=== PATIENT | male | born 1980 | race Caucasian/White ===

== ENCOUNTER 2018-09-06 23:02 | Emergency (ER) | payer MEDICAID ==
[~2018-09-06] VITALS: Ht 165.1 cm; Wt 111.1 kg
[2018-09-06] MEDS ORDERED: PERCOCET 5-3251 EACH ORAL (23:13)
[2018-09-06 23:20] VITALS: BP 122/84
--- NOTE | 2018-09-06 23:20 | NUR ---
ER Nurse Note: Pt from home c/o generalized pain, 10/10 pain. 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 Pt stated he is in need of a gastric bypass and experiencing shortness of breath. Pt was laying in bed; smiling and calm. Pt VSS, no signs of distress, O2 96% room air; cap refill less than three sec. Full range of motion in all extremities with no difficulity. Ambulatory, no skin breakdown. ERMD at pt side; will continue to monitor.
[2018-09-06 23:30] VITALS: BP 122/84
--- NOTE | 2018-09-06 23:30 | NUR ---
ER Nurse Note: Pt seen, treated, medically cleared for discharge by ERMD. Pt stated he would not leave until he saw the doctor and get medication. Pt refused to leave; escorted by security. Left with all belongings.
--- NOTE | 2018-09-06 23:35 | Emergency Room Report ---
History of Present Illness General Chief Complaint: Pain Source: Patient Present Illness HPI Patient presents with reports of back pain and sleep apnea Reports that he requires a gastric bypass Patient has been having low back pain for several years Denies any acute fall or trauma denies any chest pain or shortness of breath Denies any saddle paresthesia denies any loss of control of bowel or urination Patient reports that he is allergic to Tylenol or Motrin therefore requires ' the strong staff' When asked what he meant by that patient replies that he requires'Dilaudid or morphine' Allergies: Coded Allergies: ACETAMINOPHEN (Verified Allergy, Unknown, 09/06/18) IBUPROFEN (Verified Allergy, Unknown, 09/06/18) NAPROXEN (Verified Allergy, Unknown, 09/06/18) Patient History Past Medical History: see triage record Reviewed Nursing Documentation: PMH: Agreed; PSxH: Agreed Nursing Documentation-PMH Past Medical History: No Stated History Review of Systems All Other Systems: negative except mentioned in HPI Physical Exam Vital Signs Date Time Temp Pulse Resp B/P (MAP) Pulse Ox O2 Delivery O2 Flow Rate FiO2 09/06/18 23:05 98.2 90 12 122/84 96 Room Air Sp02 EP Interpretation: reviewed, normal General Appearance: well appearing, no apparent distress Head: normocephalic, atraumatic Eyes: bilateral eye PERRL, bilateral eye EOMI ENT: normal pharynx Neck: supple Respiratory: lungs clear, no retraction, no accessory muscle use Cardiovascular #1: regular rate, rhythm Gastrointestinal: non tender, soft Musculoskeletal: normal inspection - Patient ambulating without any deficits Neurologic: alert, oriented x3, responsive Psychiatric: mood/affect normal Skin: normal color Lymphatic: no adenopathy Medical Decision Making Diagnostic Impression: Primary Impression: back pain ER Course Patient has appropriate medical screening evaluation performed Remains hemodynamic stable does not show any acute emergent pathology I'm concerned about the patient's request for Dilaudid or morphine Also concerned about his allergies to Tylenol and Motrin and naproxen I feel patient will benefit from appropriate outpatient evaluation and further care as needed At the time of disposition patient ambulated to the physician dictation area, and bleeding without any deficit, reports that I have taken an oath Patient's otherwise stable for close outpatient follow-up Last Vital Signs Date Time Temp Pulse Resp B/P (MAP) Pulse Ox O2 Delivery O2 Flow Rate FiO2 09/06/18 23:05 98.2 90 12 122/84 96 Room Air Status: unchanged Disposition: HOME, SELF-CARE Condition: Stable Referrals: [facility] Patient Instructions: Back Pain, Adult Additional Instructions: Patient is provided with the discharge instructions notified to follow up with primary doctor in the next 2-3 days otherwise return to the er with any worsening symptoms. Please note that this report is being documented using [employer] technology. This can lead to erroneous entry secondary to incorrect interpretation by the dictating instrument. Shaquille Barrios DO Sep 06, 2018 23:35
== END 2018-09-07 | disposition home or self-care (01) ==
LOC: EMR 23:35
DX: M54.9 Dorsalgia, unspecified (principal); G47.30 Sleep apnea, unspecified; Z98.84 Bariatric surgery status; Z88.6 Allergy status to analgesic agent
CPT/HCPCS: 99282